=== PATIENT | male | born 1935 | race Caucasian/White ===

== ENCOUNTER → 2017-08-13 | Outpatient (CLI) | payer OTHER ==
[~2017-08-13] MED LIST: AUGMENTIN875 MG PO; LEVAQUIN500 MG PO
== END | disposition home or self-care (01) ==
LOC: RAD 08-08 11:00
PROC: 0HB1XZX Excision of Face Skin, External Approach, Diagnostic (ICD-10-PCS; principal; 2017-08-13)
DX: R89.6 Abnormal cytological findings in specimens from other organs, systems and tissues (principal)
CPT/HCPCS: 76942; 88305

== ENCOUNTER 2017-08-18 12:24 | Emergency (ER) | payer OTHER ==
[~2017-08-18] VITALS: Ht 170.2 cm; Wt 67.7 kg
[~2017-08-18 12:24] MED LIST changes: -AUGMENTIN875 MG PO
[2017-08-18 14:01] LABS: HEMATOCRIT 42.1 % (38.0-50.0); HEMOGLOBIN 14.3 G/DL (12.5-16.6); MCH 31.9 PG (29.0-34.0); PLATELET COUNT 236 K/uL (156-360); RBC DIS.WIDTH-CV 13.3 % (11.8-14.6); RBC DIS.WIDTH-SD 45.9 % (39-53); RED BLOOD COUNT 4.48 M/uL (4.00-5.50); WHITE BLOOD COUNT 9.7 K/uL (4.1-10.2)
[2017-08-18 14:10] LABS: CHLORIDE 104 mEq/L (99-109); POTASSIUM 4.1 mEq/L (3.7-5.4); SODIUM 140 mEq/L (136-147)
[2017-08-18 14:12] LABS: GLUCOSE 93 mg/dL (70-99)
[2017-08-18 14:16] LABS: CREATININE 0.8 mg/dL (0.6-1.3); GFR ESTIMATE (CALCULATED) > 59 mL/min/ (58.99-99999); UREA NITROGEN (BUN) 8 mg/dL (9-23)
[2017-08-18] MEDS ORDERED: AUGMENTIN875 MG PO (16:12)
[2017-08-18 18:05] VITALS: BP 168/90
== END 2017-08-18 18:06 | disposition home or self-care (01) ==
LOC: EME 12:24
PROVIDERS: Physician Assistant
DX: R22.0 Localized swelling, mass and lump, head (principal); Z98.890 Other specified postprocedural states; I65.23 Occlusion and stenosis of bilateral carotid arteries; J03.90 Acute tonsillitis, unspecified
CPT/HCPCS: 70488; 80048; 85027; 99281; 99284